=== PATIENT | female | born 1985 | race Caucasian/White ===

== ENCOUNTER → 2021-12-12 14:23 | Outpatient (CLI) | payer OTHER, SELFPAY ==
[2021-12-12 14:50] LABS: Add Manual Diff / Slide Review NO; Basophils Absolute Auto 100 /uL (0-100); Eosinophils Absolute Auto 100 /uL (0-450); Eosinophils Percent Auto 0.9 % (2-4); Hematocrit 37.4 % (36-46); Lymphocytes Absolute Auto 1800 /uL (1100-4500); Lymphocytes Percent Auto 27.4 % (25-40); Mean Corpuscular HGB Conc 34.7 % (30-36); Mean Corpuscular Hemoglobin 31.3 PG (26-34); Mean Corpuscular Volume 90.4 fL (80-100); Monocytes Absolute Auto 500 /uL (0-900); Monocytes Percent Auto 7.4 % (3-14); Neutrophils Absolute Auto 4100 /uL (1500-7000); Neutrophils Percent Auto 63.3 % (50-75); Platelet Count 313 X10^3/uL (150-400); Red Blood Cell Count 4.14 X10^6/uL (4.0-5.2); Red Cell Distribution Width 12.6 % (11.6-14.8); White Blood Cell Count 6.4 X10^3/uL (4.5-11.0)
[2021-12-12 15:10] LABS: Appearance Urine UA CLEAR; Bilirubin Urine UA NEGATIVE (NEGATIVE); Color Urine UA YELLOW; Glucose Urine UA NEGATIVE (Negative); Ketones Urine UA TRACE (NEGATIVE); Leukocyte Esterase Urine UA NEGATIVE (NEGATIVE); Nitrite Urine UA NEGATIVE (Negative); Occult Blood Urine UA TRACE-LYSED (Negative); Protein Urine UA NEGATIVE (Negative); Specific Gravity Urine UA 1.025 (1.000-1.035); Urobilinogen Urine UA 0.2 E.U./dL (0.2)
== END ==
PROVIDERS: PCP Obstetrics & Gynecology; Referring Provider Obstetrics & Gynecology; Visit Provider Obstetrics & Gynecology
DX: O20.0 Threatened abortion (principal)
CPT/HCPCS: 36415; 81003; 85025; 86850; 86900; 86901; 87086

== ENCOUNTER → 2022-06-11 10:37 | Outpatient (CLI) | payer OTHER, SELFPAY ==
[2022-06-11 12:41] LABS: HCG Quantitative /Beta subunit 11.5 mIU/mL
== END ==
PROVIDERS: Referring Provider Obstetrics & Gynecology; Visit Provider Obstetrics & Gynecology
DX: O20.9 Hemorrhage in early pregnancy, unspecified (principal)
CPT/HCPCS: 36415; 84702

== ENCOUNTER → 2022-07-06 12:13 | Outpatient (CLI) | payer OTHER, SELFPAY ==
[2022-07-06 14:17] LABS: HCG Quantitative /Beta subunit < 2.4 mIU/mL
[2022-07-06 14:31] LABS: TSH w/ Reflex to FT4 2.22 uIU/mL (0.47-4.68)
[2022-07-08 23:41] LABS: Cardiolipin Ab IgG <9 GPL U/mL (0-14); Cardiolipin Ab IgM 12 MPL U/mL (0-12)
[2022-07-09 18:20] LABS: Dilute Russell Viper Venom 38.5 sec (0.0-47.0); Lupus Reflex Interpretation Comment: (.); PTT-LA 39.8 sec (0.0-51.9)
[2022-07-15 08:58] LABS: B2-Glycoprotein I IgA AB < 9 (0-25); B2-Glycoprotein I IgG AB < 9 (0-20); B2-Glycoprotein I IgM AB < 9 (0-32); Cardiolipin Ab IgG < 9 GPL U/mL (0-14); Cardiolipin Ab IgM 10 MPL U/mL (0-12); Phos. Serine AB IgM < 10 Units (0-30)
== END ==
PROVIDERS: PCP Student in an Organized Health Care Education/Training Program; Referring Provider Obstetrics & Gynecology; Visit Provider Obstetrics & Gynecology
DX: O03.9 Complete or unspecified spontaneous abortion without complication (principal); N96 Recurrent pregnancy loss
CPT/HCPCS: 36415; 84443; 84702; 85598; 85613; 86146; 86147; 86148

== ENCOUNTER → 2023-01-20 12:01 | Outpatient (CLI) | payer OTHER, SELFPAY ==
[2023-01-20 12:57] LABS: Add Manual Diff / Slide Review NO; Basophils Absolute Auto 100 /uL (0-100); Basophils Percent Auto 0.7 % (0-2); Eosinophils Absolute Auto 0 /uL (0-450); Eosinophils Percent Auto 0.3 % (2-4); Hematocrit 38.8 % (36-46); Hemoglobin 13.4 g/dL (12.0-16.0); Lymphocytes Absolute Auto 1800 /uL (1100-4500); Lymphocytes Percent Auto 18.4 % (25-40); Mean Corpuscular HGB Conc 34.5 % (30-36); Mean Corpuscular Hemoglobin 31.1 PG (26-34); Mean Corpuscular Volume 90.2 fL (80-100); Monocytes Absolute Auto 500 /uL (0-900); Neutrophils Absolute Auto 7400 /uL (1500-7000); Neutrophils Percent Auto 75.6 % (50-75); Platelet Count 293 X10^3/uL (150-400); Red Cell Distribution Width 13.5 % (11.6-14.8); White Blood Cell Count 9.8 X10^3/uL (4.5-11.0)
[2023-01-21 11:36] LABS: Varicella IgG Antibody 204 index (Immune >165)
[2023-01-21 17:00] LABS: Hepatitis B Surface Antigen NEGATIVE s/c (NEGATIVE)
[2023-01-21 17:14] LABS: HIV 1 & 2 Ab/Ag 4th Gen Combo NEGATIVE (NEGATIVE); Hep C Virus Ab w/Reflex Quant NEGATIVE s/c (NEGATIVE)
[2023-01-23 04:24] LABS: RPR Screen Non Reactive (Non Reactive)
== END ==
PROVIDERS: PCP Student in an Organized Health Care Education/Training Program; Referring Provider Obstetrics & Gynecology; Visit Provider Obstetrics & Gynecology
DX: Z34.81 Encounter for supervision of other normal pregnancy, first trimester (principal)
CPT/HCPCS: 36415; 80055; 86787; 86803; 86850; 86900; 86901; 87086; 87389

== ENCOUNTER → 2023-04-05 12:12 | Outpatient (CLI) | payer OTHER, SELFPAY ==
--- NOTE | 2023-04-05 12:12 | DI.US.S_ITS ---
PROCEDURE: US OB >= 14 WEEKS FETUS INDICATIONS: anatomy scan OUTSIDE/PRIOR DATING DATA: Last menstrual period (LMP): 11/12/2022 LMP-based estimated date of delivery (MATA): 08/19/2023. First dating scan (date and location): 01/20/2023. Estimated date of delivery (MATA) from first dating scan: 08/15/2023. TECHNIQUE: Real-time scanning was performed of the fetus, with image documentation and biometric measurements. COMPARISON: None. FINDINGS: General: A single living intrauterine gestation is present. Presentation: Vertex. Placenta: Placental position is anterior , without previa. Amniotic fluid index: 15.5 cm, normal range is 5-24 cm. Single deepest vertical pocket is 5.1 cm. heart rate: 144 beats per minute. Maternal cervical canal: 4.7 cm long. Normal lower limit is 2.5 cm. biometrics: Biparietal diameter: 22 weeks Head circumference: 21 weeks 1 day Abdominal circumference: 20 weeks 6 days Femur length: 21 weeks 4 days Clinically estimated gestational age: 20 weeks 4 days Composite gestational age from present scan: 21 weeks 3 Estimated weight and percentile: 410 g; 81st percentile Anatomic survey: Neuro: Ventricles are non-dilated at less than 10 mm. Cisterna magna is normal at 3-11 mm. Cerebellum is normal in size and morphology. Nuchal skin fold: Normal at less than 6 mm between 14-21 weeks gestational age. Face: Nose and lips, facial profile are normal. Spine: No evidence for spina bifida. Heart: 4-chambered heart is present, with normal LVOT. RVOT suboptimally visualized. Diaphragm: Diaphragm is intact. Stomach: Left-sided stomach is present. Kidneys: No hydronephrosis. Normal is less than 5 mm in 2nd trimester, less than 7 mm in 3rd trimester. Cord: 3-vessel cord has orthotopic insertion. Bladder: Normal in size. Extremities: All 4 extremities identified. IMPRESSION: 1. Single living IUP redemonstrated and interval growth is upper limits of normal. 2. RVOT not well seen; otherwise no anatomic survey. We strive to produce accurate, complete, and clear reports of imaging services. To assist us in improving patient care, this report was composed using standard report templates and voice recognition software. Therefore, it may contain abnormal punctuation, insertions and/or omissions. Occasional wrong-word or sound-alike substitutions may occur. Though we review the report and make efforts to correct it, we do recommend that the report be read carefully in proper context to recognize any text inaccuracies. Dictated by: Roddy OSORIO Interpreted: Simon Campuzano MD on 04/05/2023 at 13:23 Transcribed by: THALIA on 04/05/2023 at 13:27 Approved by: Simon Campuzano M.D. on 04/06/2023 at 22:36
[2023-04-08 20:00] LABS: AFP Value 54.4 ng/mL (.); Gest Age on Col Date 20.6 weeks (.); Insulin Dep Diabetes No (.); OSBR Risk 1IN 10000 (.); Results Report (.); Test Results *Screen Negative* (.)
== END ==
PROVIDERS: PCP Student in an Organized Health Care Education/Training Program; Referring Provider Obstetrics & Gynecology; Visit Provider Obstetrics & Gynecology
DX: Z34.82 Encounter for supervision of other normal pregnancy, second trimester (principal); Z3A.21 21 weeks gestation of pregnancy
CPT/HCPCS: 36415; 76811; 82105

== ENCOUNTER → 2023-07-23 10:33 | Outpatient (CLI) | payer OTHER, SELFPAY ==
[2023-07-24 07:40] LABS: Strep Grp B PCR NEG for Grp B Strep
== END ==
PROVIDERS: PCP Student in an Organized Health Care Education/Training Program; Visit Provider Specialist
DX: Z34.83 Encounter for supervision of other normal pregnancy, third trimester (principal); Z3A.36 36 weeks gestation of pregnancy
CPT/HCPCS: 87653

== ENCOUNTER 2023-07-23 11:05 | Outpatient (CLI) | payer OTHER, SELFPAY | END 2023-07-23 11:56 | disposition home or self-care (01) | LOC: LABOR 11:56 → OB 07-27 06:14 | PROVIDERS: PCP Student in an Organized Health Care Education/Training Program; Referring Provider Specialist; Visit Provider Specialist | DX: O09.523 Supervision of elderly multigravida, third trimester (principal); Z3A.36 36 weeks gestation of pregnancy; Z34.83 Encounter for supervision of other normal pregnancy, third trimester | CPT/HCPCS: 59025; 87653; G0378; G0379 ==

== ENCOUNTER 2023-07-30 11:28 | Outpatient (CLI) | payer OTHER, SELFPAY ==
--- NOTE | 2023-07-30 20:01 | P.TNLD_ITS ---
Visit Information Visit Information Date of evaluation: 07/30/23 Primary OB Provider: Alanna Arriola On-call OB Provider: Kayla Guerrero Reason for Evaluation: Yes non-stress test non-stress test reason: other (Advanced maternal age) Vital Signs Vital Signs: Blood pressure 100/52, pulse of 83, temperature 96.9? 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 Father Hypertension Myocardial infarction Basal cell carcinoma Grandmother Hypertension Kidney replaced by transplant Grandfather Bladder cancer Smoker Grandmother Diabetes mellitus Grandfather No problems noted. 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) occupational status: unemployed ([employer]) current occupational exposures/hazards: No special akira needs: No travel history: recent (domestic only) seatbelt use: always helmet use: Yes water heater temp set < 120 deg: Yes working smoke detector in home: Yes fire extinguisher in home: Yes carbon monox detector in home: Yes firearms in home: No do you feel safe at home: Yes Smoking Status: Never smoker second hand exposure: No alcohol intake: former (2-4/week when not ) substance use type: does not use during the past year weight has: remained stable well-balanced diet: daily or most days daily servings fruits/ve-4 caffeine: Yes Type(s) of exercise: walking and yoga frequency: 5-6 times per week Review of Systems Review of Systems Narrative: Patient denies leakage of fluid, vaginal bleeding, contractions Evaluation Evaluation Baseline heart rate: 130 Variability: Moderate (11-25) monitor accelerations: Present Monitor Decelerations: Absent Contraction Frequency (minutes): 10 Uterine Contraction Intensity: Mild Category of Tracing: Reactive Status: Category l Diagnosis, Plan/Disposition Final Diagnosis (1) AMA (advanced maternal age) primigravida 35+: Status: Acute (2) 37 weeks gestation of : Status: Acute Plan/Disposition Plan: Reactive nonstress test. Weekly nonstress test for advanced maternal age. Continue weekly OB visits. OB Disposition: home
== END 2023-07-30 12:06 | disposition home or self-care (01) ==
LOC: LABOR 11:57 → OB 08-02 11:57
PROVIDERS: PCP Student in an Organized Health Care Education/Training Program; Referring Provider Specialist; Visit Provider Specialist
DX: O09.523 Supervision of elderly multigravida, third trimester (principal); Z3A.37 37 weeks gestation of pregnancy
CPT/HCPCS: 59025; G0378; G0379

== ENCOUNTER 2023-08-05 11:13 | Outpatient (CLI) | payer OTHER, SELFPAY | END 2023-08-05 12:04 | disposition home or self-care (01) | LOC: OB 10-25 09:21 | PROVIDERS: PCP Student in an Organized Health Care Education/Training Program; Referring Provider Specialist; Visit Provider Specialist | DX: O09.523 Supervision of elderly multigravida, third trimester (principal); Z3A.37 37 weeks gestation of pregnancy; B00.9 Herpesviral infection, unspecified; O98.313 Other infections with a predominantly sexual mode of transmission complicating pregnancy, third trimester | CPT/HCPCS: 59025; G0378; G0379 ==

== ENCOUNTER 2023-08-13 12:26 | Inpatient (IN) | payer OTHER, SELFPAY ==
--- NOTE | 2023-08-13 13:27 | PM.OBHP.1 ---
OB HPI Date/Time Date of admission: 08/13/23 Date Patient Seen: 08/13/23 Time Patient Seen: 13:27 History of Present Condition Chief complaint: LABOR : 6 Para: 1 Estimated Date of Delivery: 08/19/23 Estimated Gestational Age (weeks): 39 Narrative: Isela Espinoza is a 37 year old female admitted at 39 weeks 1 day for induction for favorable cervix and distance from the hospital with advanced maternal age Indications Indication for induction OB: maternal distance and other (Advanced maternal age) History of Present care: good care, initiated at week # (9), number of visits (10) and pounds weight gain (45) Dating criteria: LMP confirmed by 1st trimester US Ultrasounds: normal mid trimester US Obstetrical complications: none Medical complications: none Preadmission Labs Blood type: A (-) negative -: Antibody screen: negative, GBS status: negative, HBsAG: negative, HIV: negative, HSV 2: positive and RPR/VDLR: negative -: Chlamydia screen: not detected and Gonorrhea screen: not detected -: Rubella: immune and Varicella: immune HCAB: negative Cell-free DNA: Normal male 1 hr GTT: 154 3 hr GTT: 1 hr (190), 2 hr (140) and 3 hr (100) Fasting blood glucose: 92 Prior (ies) History: 01/09/19 41 19 6 lb 8 oz Femalevaginallive - full termepiduralAZ 6 mos: low supply post-dates inductionEmber Evaluation Evaluation Baseline heart rate: 130 Variability: Moderate (11-25) monitor accelerations: Present Monitor Decelerations: Absent Contraction Frequency (minutes): 10 Uterine Contraction Intensity: Mild Category of Tracing: Reactive Status: Category l Dilation (cm): 4 Effacement (%): 75 Dilation: 3-4 cm Effacement: >/=80% station: -2 Position of cervix: anterior Consistency: soft Hewitt score: 10 [facility] Medical History (Updated 08/05/23 @ 12:40 by Kayla Guerrero MD) Abnormal Pap smear of cervix (~02/2021) Anxiety (~2013) 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 Father Hypertension Myocardial infarction Basal cell carcinoma Grandmother Hypertension Kidney replaced by transplant Grandfather Bladder cancer Smoker Grandmother Diabetes mellitus Grandfather No problems noted. 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) occupational status: unemployed ([employer]) current occupational exposures/hazards: No special akira needs: No travel history: recent (domestic only) seatbelt use: always helmet use: Yes water heater temp set < 120 deg: Yes working smoke detector in home: Yes fire extinguisher in home: Yes carbon monox detector in home: Yes firearms in home: No do you feel safe at home: Yes Smoking Status: Never smoker second hand exposure: No alcohol intake: former (2-4/week when not ) substance use type: does not use during the past year weight has: remained stable well-balanced diet: daily or most days daily servings fruits/ve-4 caffeine: Yes Type(s) of exercise: walking and yoga frequency: 5-6 times per week Meds Home Medications and Allergies Home Medications Medication Instructions Recorded Confirmed Type prenat.vits,oracio,[id number]-zsxsv 1 tab PO DAILY 12/11/21 08/12/23 History acyclovir 400 mg tablet 400 mg PO BID HSV outbreak 07/19/23 08/12/23 Rx prophylaxis #84 tabs Allergies Allergy/AdvReac Type Severity Reaction Status Date / Time Sulfa (Sulfonamide Allergy Verified 08/12/23 16:32 Antibiotics) Review of Systems Review of Systems Narrative: Patient denies leakage of fluid. Minimal bleeding after stripping of membranes yesterday. Good movement. No headaches, scotomata, epigastric pain. No fevers. OB Exam Vital signs Blood Pressure: 108/68 Pulse Rate: 104 Temperature: 97.3 F Narrative Exam Narrative: HEENT exam within normal limits. Lungs are clear to auscultation percussion. No thyromegaly. Heart is regular rate and rhythm no S3-S4 murmurs. Abdomen is gravid, fetus is vertex. No evidence of HSV current infection. Extremities without edema and nontender. Assessment and Plan Assessment and Plan Assessment and Plan narrative: 39 week 1 day gestation with favorable cervix and distance from the hospital who comes in for Pitocin induction. Consent form signed and questions answered. Time Spent with Patient Total time spent with greater than 50% in coordination of care (as documented) at patient's floor/unit and/or counseling patient:: less than 15 minutes
[2023-08-13 13:32] VITALS: BP 108/68; PULSE 104; TEMP 36.3
[2023-08-13 13:54] LABS: Add Manual Diff / Slide Review NO; Basophils Absolute Auto 100 /uL (0-100); Basophils Percent Auto 0.9 % (0-2); Eosinophils Absolute Auto 100 /uL (0-450); Eosinophils Percent Auto 1.1 % (2-4); Hematocrit 36.8 % (36-46); Hemoglobin 12.6 g/dL (12.0-16.0); Lymphocytes Absolute Auto 1700 /uL (1100-4500); Lymphocytes Percent Auto 17.6 % (25-40); Mean Corpuscular HGB Conc 34.4 % (30-36); Mean Corpuscular Hemoglobin 32.3 PG (26-34); Mean Corpuscular Volume 93.9 fL (80-100); Monocytes Absolute Auto 800 /uL (0-900); Monocytes Percent Auto 8.5 % (3-14); Neutrophils Absolute Auto 6900 /uL (1500-7000); Neutrophils Percent Auto 71.9 % (50-75); Platelet Count 288 X10^3/uL (150-400); Red Blood Cell Count 3.92 X10^6/uL (4.0-5.2); Red Cell Distribution Width 14.8 % (11.6-14.8); White Blood Cell Count 9.5 X10^3/uL (4.5-11.0)
[2023-08-13] MEDS: LACTATED RINGERS 1,000 ML 100 ML IV (13:55)
[2023-08-13] MEDS: OXYTOCIN PREMIX 30 UNIT/500 ML PLAST..BAG IV (14:05)
[2023-08-13 16:23] VITALS: BP 108/68
--- NOTE | 2023-08-13 17:46 | PM.OBPNLAB ---
Date/Time Date Patient Seen: 08/13/23 Time Patient Seen: 17:46 Pain Control Pain control: tolerating well Pelvic Exam Effacement (%): 75 station: -2 Contractions Contractions on admission: regular Monitor mode: External Pitocin rate (mU/min): 10 Contraction frequency (min): 4 Contraction duration (min): 1 Contraction pattern: Regular Contraction intensity: Mild Status status: Category l Heart Rate Baseline: 130 Monitor Accelerations: Present Monitor Decelerations: Absent Monitor Variability: Moderate Assessment and Plan Assessment: induction ongoing Plan: continuous present management
--- NOTE | 2023-08-13 18:01 | PM.OBPNLAB ---
Date/Time Date Patient Seen: 08/13/23 Time Patient Seen: 18:01 Pain Control Pain control: tolerating well Pelvic Exam Dilation (cm): 4 Effacement (%): 75 station: -2 Amniotic membrane status: Ruptured (AROM ed clear) Contractions Monitor mode: External Contraction frequency (min): 4 Contraction pattern: Regular Contraction intensity: Mild Status status: Category l Assessment and Plan Assessment: induction ongoing Comments: Patient agreed to AROM. Clear fluid. Continue present management. Epidural when needed. Anticipate vaginal delivery.
[2023-08-13] MEDS: CALCIUM CARBONATE 500 MG TAB 1000 MG PO (18:57)
[2023-08-13] MEDS: LACTATED RINGERS 1,000 ML 999 ML IV ×2 (19:32→20:27)
[2023-08-13] MEDS: ONDANSETRON 4 MG/2 ML INJ IV (19:38)
[2023-08-13] MEDS: FENT 2MCG/ML BUPIV 0.1% EPI 200 MCG/100 ML PLAST..BAG 10 MCG EPIDURAL (20:02)
--- NOTE | 2023-08-13 20:17 | PM.OBPNLAB ---
Date/Time Date Patient Seen: 08/13/23 Time Patient Seen: 20:17 Pain Control Pain control: epidural Pelvic Exam Dilation (cm): 6 Effacement (%): 90 station: -2 Amniotic membrane status: Ruptured (AROM ed clear) Contractions Monitor mode: External Pitocin rate (mU/min): 0 Contraction frequency (min): 3 Contraction pattern: Regular Contraction intensity: Strong/Firm Status status: Category ll Heart Rate Baseline: 125 Monitor Accelerations: Present Monitor Decelerations: Prolonged (Patient was sitting for epidural. Heart rate not monitored well. When monitored 13 minutes of baseline 90s with recovery) Monitor Variability: Moderate Assessment and Plan Assessment: active labor Plan: continuous present management (Pitocin off, patient getting comfortable with epidural. Will restart Pitocin if contractions decrease.)
[2023-08-14] MEDS: CALCIUM CARBONATE 500 MG TAB 1000 MG PO (00:04)
[2023-08-14] MEDS: ONDANSETRON 4 MG/2 ML INJ IV ×2 (00:04→04:39)
[2023-08-14] MEDS: FENT 2MCG/ML BUPIV 0.1% EPI 200 MCG/100 ML PLAST..BAG 10 MCG EPIDURAL (00:41)
--- NOTE | 2023-08-14 05:37 | P.PCNOB_ITS ---
Events: Labor Induction (Advanced maternal age and distance from) Labor & Delivery Delivery date: 08/14/23 Induction method: per pitocin protocol Delivery augmentation: rupture of membranes Delivery monitor: external FHT and external uterine Route of delivery: L&D Laceration Description: Perineal - 2nd Degree Delivery repair: chromic (3-0) Estimated blood loss (mL): 100 Anesthesia Type: Epidural Narrative: Patient arrived Labor and delivery for induction for distance from hospital and advanced maternal age. She was started on Pitocin. She had AROM for clear fluid. She received an epidural catheter for pain control. heart tones category 1 to category 2 throughout labor. The fetus would decelerations with certain positions and then returned to category 1 with returned to previous position. The patient had a swollen anterior lip that was reduced to allow pushing. With pushing there were intermittent prolonged severe decelerations but returned to baseline. The fetus delivered occiput posterior. There was a shoulder dystocia that was relieved with Lior maneuver, suprapubic pressure on the shoulder by the nurse, and corkscrew maneuver. 90 second shoulder dystocia. There was a nuchal cord that was released. The male was delivered in initially placed on maternal abdomen however the baby was then taken to the warmer but did not require resuscitation other than stimulation and warm blankets. Baby taken back to maternal abdomen. After the baby delivered the cord was clamped, cut, and cord bloods obtained. The placenta delivered spontaneously, intact, with 3 vessels. There were no cervical or vaginal tears. A second-degree perineal tear was repaired with 3-0 chromic suture in the usual 2 layer fashion. Estimated blood loss 100 cc. Both baby and mother doing well. [place] Baby 1: Infant gender: Male Presentation: vertex Position: Right Occiput Posterior Placenta delivery description: Spontaneous Cord Vessel Description: 3 Vessels score (1 min): 7 score (5 min): 9 weight: 8 lb 7 oz Plan for aftercare: Routine care
[2023-08-14] MEDS: ACETAMINOPHEN 325 MG TABLET 650 MG PO ×2 (06:03→19:53)
[2023-08-14] MEDS: DERMOPLAST SPRAY 20% 60 ML 1 SPRAY TOP (06:04)
[2023-08-14] MEDS: IBUPROFEN 600 MG TABLET PO ×2 (06:04→19:52)
--- NOTE | 2023-08-14 20:25 | P.PNOB_ITS ---
Subjective - OB Subjective Patient comments: no complaints [place] baby status: doing well and nursing well [place] feeding status: exclusively breast feeding Narrative: day 0 doing well. Date Patient Seen: 08/14/23 Time Patient Seen: 20:26 Exam Vital Signs (past 8 hours): Blood pressure 104/53, pulse 71, temperature 97.3? Narrative Exam Narrative: Abdomen is soft, nontender. Uterus is firm, at U, nontender. Mild lochia. Extremities without edema and nontender. Objective Labs 08/13/23 13:00 Assessment & Plan Plan day: 0 plan OB: routine care Comments: Patient is doing well. Time Spent With Patient Time: Total time spent is greater than 50% in coordination of care (as documented) at patient's floor/unit and/or counseling patient: Time with patient: less than 15 minutes
[2023-08-15] MEDS: IBUPROFEN 600 MG TABLET PO ×2 (02:51→08:22)
[2023-08-15] MEDS: ACETAMINOPHEN 325 MG TABLET 650 MG PO ×2 (02:51→08:23)
[2023-08-15] MEDS: PRENATAL VIT,CALC/IRON/FOLIC 1 TABLET 1 TAB PO (08:22)
--- NOTE | 2023-08-15 09:41 | PM.OBDS.1 ---
Discharge Providers Provider Date of admission: 08/13/23 12:26 Discharge Date: 08/15/23 Primary care physician: Andrei Messina Consults: 08/13/23 13:15 Consult to Anesthesiology Urgent Comment: Consulting Provider: Anesthesiologist Reason for consultation: Epidural 08/15/23 05:34 Consult to Physicist [employer] Routine Comment: Discharge provider: Kayla Guerrero MD Summary Hospital Course Date Patient Seen: 08/15/23 Time Patient Seen: 09:42 Diagnoses: Vaginal delivery Hospital Course: Patient was admitted on 08/15 for induction for advanced maternal age and distance from the hospital. She received Pitocin and an epidural catheter. She had a spontaneous vaginal delivery with repair of a second-degree tear. She is breast-feeding without difficulty. She is urinating and ambulating well. Peripartum Data Infant Delivery Method: Natural Vaginal Laceration Description: Perineal - 2nd Degree Procedures: Pitocin induction, epidural catheter, spontaneous vaginal delivery with repair of second-degree tear complications: none [place] 1: Gender: Male Disposition of : home Discharge Diagnosis (1) Vaginal delivery: Status: Acute (2) AMA (advanced maternal age) primigravida 35+: Status: Acute Status at Discharge Cognitive/behavioral status at discharge: oriented Functional status at discharge: independent ambulation Overall status at discharge: patient is progressing back to baseline Time Spent with Patient Time attestation: Total time spent providing and/or coordinating discharge services: Time spent: Less than 30 minutes Objective Labs 08/13/23 13:00 Exam Vital Signs (past 8 hours): Blood pressure 96/61, pulse 74, temperature 97.6? Narrative Exam Narrative: Abdomen is soft, nontender. Uterus is firm, at U, nontender. Mild lochia. Extremities with +1 edema bilaterally, equal, and no tenderness. Discharge Plan Discharge Plan Patient Disposition: Home Discharge orders & Medications Prescriptions: Continued prenat.vits,oracio,[id number] Tablet 1 tab PO DAILY Discontinued acyclovir 400 mg tablet 400 mg PO BID Qty: 84 0RF Rx Instructions: Start at 36 weeks and continue twice daily until delivery Follow up/Referrals: Andrei Messina [Primary Care Provider] - Alanna Arriola MD [Physician] - 6 Weeks Diet/Activity/Treatments Diet: Regular Activity: Nothing in vagina for 6 weeks Skin/Wound/Dressing Care Report to your healthcare provider any signs of infection, such as:: chills, fever and increased pain Visit Report/Discharge Packet Stand Alone Forms: Patient Portal/API Discharge Data Primary Care Provider: Andrei Messina Attending Provider: Alanna Arriola Admit Date/Time: 08/13/23 12:26
[2023-08-15 10:11] LABS: Add Manual Diff / Slide Review NO; Basophils Absolute Auto 100 /uL (0-100); Basophils Percent Auto 0.7 % (0-2); Eosinophils Absolute Auto 200 /uL (0-450); Eosinophils Percent Auto 0.9 % (2-4); Hematocrit 35.3 % (36-46); Lymphocytes Absolute Auto 2000 /uL (1100-4500); Lymphocytes Percent Auto 11.6 % (25-40); Mean Corpuscular Hemoglobin 32.3 PG (26-34); Mean Corpuscular Volume 95.1 fL (80-100); Monocytes Absolute Auto 1000 /uL (0-900); Monocytes Percent Auto 5.9 % (3-14); Neutrophils Absolute Auto 14000 /uL (1500-7000); Neutrophils Percent Auto 80.9 % (50-75); Platelet Count 265 X10^3/uL (150-400); Red Blood Cell Count 3.72 X10^6/uL (4.0-5.2); White Blood Cell Count 17.3 X10^3/uL (4.5-11.0)
[2023-08-15 11:06] VITALS: BP 96/61; PULSE 74; RESP 14; TEMP 36.4
== END 2023-08-15 10:56 | disposition home or self-care (01) | DRG 807 ==
LOC: OB 12:26 → LABOR 12:28
PROVIDERS: Specialist; Admitting Provider Obstetrics & Gynecology; PCP Student in an Organized Health Care Education/Training Program; Referring Provider Obstetrics & Gynecology; Visit Provider Obstetrics & Gynecology
DX: O98.32 Other infections with a predominantly sexual mode of transmission complicating childbirth (principal); B00.9 Herpesviral infection, unspecified; Z37.0 Single live birth; Z3A.39 39 weeks gestation of pregnancy; O70.1 Second degree perineal laceration during delivery; O76 Abnormality in fetal heart rate and rhythm complicating labor and delivery
CPT/HCPCS: 36415; 59050; 59400; 59409; 85025; 86850; 86870; 86900; 86901; G0378; J2405; J2590

== ENCOUNTER → 2023-09-24 12:12 | Outpatient (CLI) | payer OTHER, SELFPAY ==
[2023-09-27 11:50] LABS: Candida species Negative (Negative); Gardnerella vaginalis Positive (Negative); Trichomoas vaginalis Negative (Negative)
== END ==
PROVIDERS: PCP Student in an Organized Health Care Education/Training Program; Visit Provider Obstetrics & Gynecology
DX: N89.8 Other specified noninflammatory disorders of vagina (principal)
CPT/HCPCS: 87480; 87510; 87660

== ENCOUNTER → 2024-09-22 16:10 | Outpatient (ROUT) | payer OTHER, SELFPAY ==
[2024-09-25 10:36] LABS: Candida species Negative (Negative); Gardnerella vaginalis Positive (Negative); Trichomoas vaginalis Negative (Negative)
== END ==
PROVIDERS: PCP Student in an Organized Health Care Education/Training Program; Visit Provider Specialist
DX: N89.8 Other specified noninflammatory disorders of vagina (principal); K64.0 First degree hemorrhoids
CPT/HCPCS: 87480; 87510; 87660